=== PATIENT | male | born 1970 | race Caucasian/White ===

== ENCOUNTER 2024-01-22 18:13 | Emergency (ER) | payer OTHER ==
[~2024-01-22] VITALS: Ht 160 cm; Wt 78.0 kg
[2024-01-22 18:25] VITALS: BP 132/77; TEMP 98.7; O2SAT 100
== END 2024-01-22 18:50 | disposition home or self-care (01) ==
LOC: ER 18:21
DX: U07.1 COVID-19 (principal); Z88.6 Allergy status to analgesic agent